=== PATIENT | female | born 1960 | race Caucasian/White ===

== ENCOUNTER → 2019-12-19 | Day surgery (SDC) | payer OTHER ==
[~2019-12-19] VITALS: Ht 162.6 cm; Wt 77.1 kg
[~2019-12-19] MED LIST: ALBUTEROL2.5 MG/3 M INH; ASA81BEC PO; CARVEDILOL6.25 M1 PO; CYCLOSPORINE N PO; FERROUS SULFAT324 M1 PO; FUROSEMIDE 20 M20 MG PO; HUMALOG100 UNIT/1 SUBQ; IMURAN 50MG TAB50 M1 PO; LIPITOR40 MG PO; METOLAZONE 5 MG5 MG PO; NITROSTAT0.3 MG SUBLING; PROVENTIL HFA6.7 G1 INH; STIOLTO RESPIMAT4 GM INH; VITAMIN D325 MC3 PO; VITAMIN E1000 UNI4 PO
[2019-12-19 07:30] VITALS: BP 123/70
--- NOTE | 2019-12-23 06:13 | O ---
[facility] [place] [address] OPERATIVE REPORT Name: ZANE WRIGHT Room #: REG [facility].#: [id number] Admission: 12/19/19 Attend Phys: Kp Gordon MD Discharge: Date of : 58 Report #: [id number] THIS REPORT FOR: cc: Minnie Olivas Karmen RNP White, William L. MD ~ CC: Jam Gordon DATE OF SERVICE: 12/19/2019 PREOPERATIVE DIAGNOSIS: Tumor of right lower lid. POSTOPERATIVE DIAGNOSIS: Tumor of right lower lid. PROCEDURE: Excision of tumor of right lower lid with frozen sections and myocutaneous flap repair of defect. SURGEON: Kp Gordon MD. CHARGE ENTRY: None. ANESTHESIA: MAC. COMPLICATIONS: None. INDICATIONS FOR SURGERY: This pleasant 59-year-old woman has a nodular ulcerative lesion in her central right lower lid that appears to be a basal cell carcinoma. She presents today for excision of that lesion with frozen sections and subsequent repair of that defect. Informed consent was obtained to include but not limited to the potential risk for loss of vision, bleeding, infection, failure to improve the problem, the potential need for further surgery or treatment. DESCRIPTION OF PROCEDURE: The patient was taken to the operating room where 2% Xylocaine with epinephrine mixed with equal parts of 0.75% Marcaine with Wydase was administered transcutaneously and transconjunctivally to the right lower lid. The patient was subsequently prepped and draped in the usual sterile fashion. A fine tip skin marking pen was then utilized to outline the lesion including 1-2 mm of normal appearing tissue. The incisions were then made perpendicularly across the eyelid margin and drawn tied to a point in the premalar space. The specimen was then oriented on a drawing for the waiting pathologist. Hemostasis was achieved in the field with diligent pinpoint [facility] [address] [place] [address] OPERATIVE REPORT Name: ZANE WRIGHT Horacio Room #: REG [facility].#: [id number] Admission: 12/19/19 Attend Phys: Kp Gordon MD Discharge: Date of : 58 Report #: [id number] monopolar cautery. The pathologist snap froze that specimen and found that the margins were clear of invasive carcinoma. A myocutaneous flap was then developed rotating tissue from lateral to the medial frey portion of the defect. Hemostasis was then re-achieved. The flap was then advanced and secured with interrupted 5-0 Vicryl sutures deep. The tarsal plate was reapproximated with interrupted 5-0 Vicryl sutures. The subcutaneous structures and the skin were then advanced and closed with superficial Vicryl sutures and then a final skin closure of 6-0 plain gut sutures. The eyelid margin itself was reapproximated with interrupted 7-0 Vicryl sutures. The wounds were then cleaned and dressed with erythromycin ointment. The patient subsequently transported to the recovery area having tolerated the procedures well with no anesthetic or operative complications being noted. <ELECTRONICALLY SIGNED> By: pK Gordon MD 12/23/19 0613 0917 Kp Gordon MD /nt
--- NOTE | 2019-12-23 10:09 | PATH ---
[facility] [place] [address] PATHOLOGY RPT PROCEDURE Name: ZANE WRIGHT Room #: REG [facility]#: [id number] Admission: 12/19/19 Date of : 58 Discharge: Report #: [id number] Path Case #: [id number] [facility] Accession Number: [id number] . 01 Material submitted: . lid - TUMOR RIGHT LOWER LID. Modifiers: right, lower . 02 Frozen section diagnosis: . FROZEN SECTION DIAGNOSIS (Claudia Zacarias MD) . FSA1, Skin tumor right lower lid, excision: - Margins free of invasive carcinoma on FS slides. . These findings are discussed with Dr. Kp Gordon in OR6 at [facility] and a written report is placed in the patient's chart. . Frozen section performed at [facility], [address] [place] [address]. . . GROSS DESCRIPTION The specimen is received fresh from the OR labeled with the patient's name, "tumor right lower lid", and consists of an inverted triangular specimen measuring 1 cm from base to height, and the base measuring 1.1 cm. The thickness of the specimen is 0.5 cm. The specimen is oriented as superior, medial, inferior and lateral by Dr. Gordon. At this point, the superior to medial to inferior margin is inked black, the infero-lateral margin is inked blue, and the supero-lateral margin is inked green. The superior border is inked orange. At this point, the specimen is sectioned into three pieces and submitted for frozen section in entirety as FSA1, this is subsequently submitted for permanent sections as A1. (IUV:laura; 12/19/2019) IZV/QMS . 02 Diagnosis: Skin, tumor right lower lid, excision: - BASAL CELL CARCINOMA. - Margins of resection free of malignancy. (IUV:pit 12/20/2019) QTP 12/20/2019 1229 Local . 02 Electronically signed: . Claudia Zacarias MD, Pathologist NPI- [id number] . 01 Gross description: . [facility] [address] [facility] [place] [address] PATHOLOGY RPT PROCEDURE Name: ZANE WRIGHT Room #: REG [facility] M.R.#: [id number] Admission: 12/19/19 Date of : 58 Discharge: Report #: [id number] Path Case #: [id number] PLEASE SEE GROSS DESCRIPTION UNDER FROZEN SECTION. /QMS 12/19/2019 1324 Local . 02 Pathologist provided ICD-10: C44.1122 . 02 CPT . 822729, 186273 Specimen Comment: A courtesy copy of this report has been sent to [phone] Specimen Comment: Report sent to Performed at: [address], [place] [id number] MD Eb Mcfarlane MD Phone: [phone] Performed at: [address] [id number] MD Claudia Zacarias MD Phone: [phone]
== END | disposition home or self-care (01) ==
LOC: OR 11-14 10:52
DX: C44.1122 Basal cell carcinoma of skin of right lower eyelid, including canthus (principal); I10 Essential (primary) hypertension; E11.9 Type 2 diabetes mellitus without complications; E78.5 Hyperlipidemia, unspecified; D64.9 Anemia, unspecified; J43.9 Emphysema, unspecified; I25.2 Old myocardial infarction; Z85.828 Personal history of other malignant neoplasm of skin; Z98.890 Other specified postprocedural states; Z79.899 Other long term (current) drug therapy; Z79.82 Long term (current) use of aspirin; Z79.4 Long term (current) use of insulin; Z95.1 Presence of aortocoronary bypass graft; Z98.41 Cataract extraction status, right eye; Z98.42 Cataract extraction status, left eye; Z98.51 Tubal ligation status; Z87.891 Personal history of nicotine dependence; Z88.8 Allergy status to other drugs, medicaments and biological substances; Z91.041 Radiographic dye allergy status
CPT/HCPCS: 50010; 50101; 50386; 50398; 51636; 56528; 56531; 62110; 62850; 70005